=== PATIENT | female | born 1950 | race Caucasian/White ===

== ENCOUNTER 2021-05-03 17:46 | Outpatient (REF) | payer MEDICARE, SELFPAY | END 2021-05-03 17:47 | disposition home or self-care (01) | LOC: HO.LNP 17:46 | PROVIDERS: Visit Provider Hospitalist | DX: Z20.822 Contact with and (suspected) exposure to COVID-19 (principal); J01.90 Acute sinusitis, unspecified | CPT/HCPCS: U0003; U0005 ==

== ENCOUNTER 2022-04-07 14:22 | Outpatient (REF) | payer MEDICARE, SELFPAY ==
[2022-04-07 15:13] LABS: Influenza A PCR NEGATIVE (Negative); Influenza B PCR NEGATIVE (Negative); Resp Syncy Virus RNA Qual PCR NEGATIVE (Negative); SARS COV2 PCR INHOUSE NEGATIVE (Negative)
== END 2022-04-07 14:23 | disposition home or self-care (01) ==
LOC: HO.LNP 14:22
PROVIDERS: Visit Provider Physician Assistant
DX: Z20.822 Contact with and (suspected) exposure to COVID-19 (principal); B34.9 Viral infection, unspecified
CPT/HCPCS: 0241U

== ENCOUNTER 2023-01-31 14:24 | Outpatient (REF) | payer MEDICARE, SELFPAY | END 2023-01-31 14:25 | disposition home or self-care (01) | LOC: HO.LAB 14:24 | PROVIDERS: Visit Provider Physician Assistant | DX: R30.0 Dysuria (principal) | CPT/HCPCS: 87086; 87088; 87186 ==

== ENCOUNTER 2025-05-17 09:09 | Outpatient (AMB) | payer MEDICARE, MEDICAID, SELFPAY ==
--- NOTE | 2025-05-17 09:16 | AM.OFFWIN_ITS ---
Intake Vital Signs 05/17/25 09:23 Height 4 ft 10 in Weight 163 lb BMI 34.1 BP 104/70 Blood Pressure Location Lt brachial Position Sitting Pulse 94 Pulse Source Pulse Oximeter Temp 98.3 F Temp Source Oral Pulse Oximetry (%) 97 Oxygen Delivery Method Room Air Intake Visit Reasons: EP-sinus infection Intake Note: presents with chest congestion, productive cough and sinus congestion Patient Tobacco Use Status: Never used Tobacco Allergies naproxen (Naproxen) Allergy (Mild, Verified 05/17/25 09:24) STOMACH PAIN oxybutynin (From Ditropan) Allergy (Mild, Verified 05/17/25 09:24) N/V/STOMACH PAIN levofloxacin (From Levaquin) Adverse Reaction (Intermediate, Verified 05/17/25 09:26) GI distress, shakes Do you need a note to return to daycare/school/sports/work: No HPI HPI Comments History of Present Illness Details History - The patient is a 75-year-old female pr esenting with exacerbation of asthma symptoms and nasal congestion. - Asthma: Symptoms include throat tickle and chest congestion since Thursday, with sleep disturbance. - Asthma: Uses nebulizer with albuterol, reports wheezing. - Allergic Rhinitis: Nasal congestion af fects CPAP use, uses Vicks Synix. - Allergic Rhinitis: Takes montelukast, Nasacort, and allergy pill. - Sciatica: Reports ongoing pain, attend ing therapy with partial relief. Physical Exam General: Cooperative, healthy appearing, comfortable and no acute distress Orientation/consciousness: Patient oriented x3 Limitations: No limitations Head: Normal to inspection Ears: Hearing grossly normal bilaterally, external ears normal and TM's normal bilaterally Nose: Normal external nose present, Normal nares present and nasal congestion present Face and sinus: Normal facial exam and Yes sinuses nontender Mouth: Normal oral and palatal mucosa present and moist mucous membranes Throat: Yes tonsils normal, Yes uvula midline. Posterior oropharynx erythema, no exudates Eyes: Appearance normal, both eyes and all related structures Neck: Normal visual inspection, full ROM Respiratory: exp wheezes throughout. Normal respiratory effort, able to speak in complete sentences, not Actively coughing, no respiratory distress, not tachypneic, no tripod positioning and no use of accessory muscles Cardiovascular: Regular rate and rhythm. Normal S1 and S2 Skin: No rashes or lesions noted Neuro: Patient oriented x3 Extremities: Normal to inspection and Yes no clubbing, cyanosis or edema PFSH Social History Patient Tobacco Use Status: Never used Tobacco Review of Systems Const All systems reviewed & are unremarkable except as noted in HPI and below Physical Exam Vital Signs: Last Vital Signs Temp 98.3 F 05/17/25 09:23 Pulse 94 05/17/25 09:23 BP 104/70 05/17/25 09:23 Pulse Ox 97 05/17/25 09:23 Oxygen Delivery Method Room Air 05/17/25 09:23 BMI result Body Mass Index 34.1 Assessment & Plan Assessment & Plan (1) Lower respiratory infection (e.g., bronchitis, pneumonia, pneumonitis, pulmonitis): Code(s): J22 - Unspecified acute lower respiratory infection Plan: Plan - VSS, pt well appearing and PE remarkable for exp wheezing. - Prescribed prednisone 40 mg daily for five days. - Prescribed refill of albuterol nebulizer solution as well as Zpak for anti- inflammatory effects and atypical coverage. - Continue montelukast, Nasacort, and allergy medication. - Recommend decongestants like Mucinex. - Tested for flu, COVID-19, and RSV. Pt confirmed phone number and said okay to leave voice mail with test results. Patient was informed and verbally consented to the use of an ambient scribe for clinic note documentation during this visit Orders: Orders SARS-CoV2/FLU/RSV Today R09.89 - Other specified symptoms and signs involving the circulatory and respiratory systems Medications: New albuterol sulfate 1.25 mg (3 mL) inhalation Q4-6H PRN 90 mL 0RF Shortness Of Breath Or Wheezing prednisone 40 mg (2 x 20 mg) PO QAM 10 tabs 0RF azithromycin For 250 mg dose pack: take 500 mg today (day 1), then 250 mg for 4 days (days 2-5) PO 6 tabs 0RF Coding Level of Care Code New Pt Level 3 (79932) Diagnoses Lower respiratory infection (e.g., bronchitis, pneumonia, pneumonitis, pulmonitis) J22
[2025-05-17 09:23] VITALS: BP 104/70; PULSE 94; TEMP 36.8; O2SAT 97; BMI 34.1
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
== END 2025-05-17 10:20 | disposition home or self-care (01) ==
PROVIDERS: PCP Internal Medicine; Visit Provider Physician Assistant
DX: J22 Unspecified acute lower respiratory infection (principal)

== ENCOUNTER 2025-05-17 09:09 | Outpatient (REF) | payer MEDICARE, MEDICAID, SELFPAY ==
--- OUTSIDE RECORDS SUMMARY | 2025-05-17 10:18 | XMS_ITS | Encounter Summary ---
Author Organization [facility] Address [address] [place] [address] Care Team Providers Care Die Maker Bench Stamping Name Role Phone Sharad Bardales MD Primary Care Provider [phone] Wily Amezcua PA-C Primary Care Provider + [phone] Iggy Soto Primary Care Provider [phone] Reason for Visit * Reason Onset Date Comments medication problems 10/31/2020 Encounter Details Date Type Department Care Team Description 10/31/2020 Telephone Internal Medicine - [place] [address] [facility], [address] [place] [address] Sharad Bardales MD [address] [place] [address] medication problems Social History Tobacco Use Types Packs/Day Years Used Date Smoking Tobacco: Never Smokeless Tobacco: Never Alcohol Use Standard Drinks/Week Comments Yes 0 (1 standard drink = 0.6 oz pur e alcohol) 1 drink every 3 months Sex Assigned at Date Recorded Not on file Job Start Date Occupation Industry Not on file Not on file Not on file COVID-19 Exposure Response Date Recorded In the last month, have you been in contact with someone who was confirmed or suspected to have Coronavirus / COVID-19? No / Unsure 10/29/2020 9:07 AM EST documented as of this encounter Miscellaneous Notes * Telephone Encounter - Kesha William - 10/31/2020 9:34 AM EST Who is calling? Fax from [employer]. Fax #[phone] Name of the medication Albuterol Neb What is the specific problem or interaction? Pharmacy states prescription instructions exceed maximum daily dose of 4 vials and may require prior auth. Fax to be in providers folder by end of day. If the patient is having a problem with taking the med - how long has the problem been going on? N/A documented in this encounter Plan of Treatment Not on file documented as of this encounter Visit Diagnoses Not on filedocumented in this encounter Care Teams Die Maker Bench Stamping Relationship Specialty Start Date End Date Sharad Bardales MD [address] [place] [address] PCP - General 10/12/1994 01/21/21 Wily Amezcua PA-C [address] [place] [address] PCP - General Internal Medicine 01/22/21 04/07/22 Iggy Soto [address] [place] [address] PCP - General Internal Medicine 04/08/22 documented as of this encounter
[2025-05-17 14:29] LABS: Resp Syncy Virus RNA Qual PCR NEGATIVE (Negative); SARS COV2 PCR INHOUSE NEGATIVE (Negative)
== END 2025-05-17 09:10 | disposition home or self-care (01) ==
LOC: HO.LAB 09:09
PROVIDERS: Physician Assistant; PCP Internal Medicine
DX: J22 Unspecified acute lower respiratory infection (principal); R09.89 Other specified symptoms and signs involving the circulatory and respiratory systems
CPT/HCPCS: 87637; 99202

== ENCOUNTER 2025-05-23 08:58 | Outpatient (AMB) | payer MEDICARE, MEDICAID, SELFPAY ==
[2025-05-23 09:01] VITALS: BP 126/74; PULSE 68; TEMP 36.8; O2SAT 97; BMI 34.5
--- NOTE | 2025-05-23 09:01 | AM.OFFWIN_ITS ---
Intake Vital Signs 05/23/25 09:01 Height 4 ft 10 in Weight 165 lb 4 oz BMI 34.5 BP 126/74 Blood Pressure Location Lt brachial Position Sitting Pulse 68 Pulse Source Pulse Oximeter Temp 98.2 F Temp Source Oral Pulse Oximetry (%) 97 Oxygen Delivery Method Room Air Intake Visit Reasons: EP-chest & sinus congestion Patient Tobacco Use Status: Never used Tobacco Stewardesses Teacher Required: No Is last menstrual period known: No Post menopausal: Yes Patient : No Allergies naproxen (Naproxen) Allergy (Mild, Verified 05/23/25 09:07) STOMACH PAIN oxybutynin (From Ditropan) Allergy (Mild, Verified 05/23/25 09:07) N/V/STOMACH PAIN levofloxacin (From Levaquin) Adverse Reaction (Intermediate, Verified 05/23/25 09:07) GI distress, shakes Do you need a note to return to daycare/school/sports/work: No HPI HPI Comments History of Present Illness Details History - The patient is a 75-year-old female pr esenting with persistent respiratory congestion and wheezing. - Respiratory infection began two weeks ago. - Severe chest congestion and wheezing, especially at night. - Z-Cristian and prednisone course RX'd on 05/17 were ineffective. - History of asthma, uses CPAP, able to use every night still - Mucinex not helpful, Robitussin was he lpful. - Negative for flu, COVID-19, and RSV on 05/17 visit. Physical Exam General: Cooperative, healthy appearing, comfortable and no acute distress Orientation/consciousness: Patient oriented x3 Limitations: No limitations Head: Normal to inspection Ears: Hearing grossly normal bilaterally, external ears normal and TM's normal bilaterally Nose: Normal external nose present, Normal nares present and No nasal discharge present Face and sinus: Normal facial exam and Yes sinuses nontender Mouth: Normal oral and palatal mucosa present and moist mucous membranes Throat: Yes tonsils normal, Yes uvula midline. Posterior oropharynx erythema, no exudates Eyes: Appearance normal, both eyes and all related structures Neck: Normal visual inspection, full ROM Respiratory: Wheezing present, congested, clear to auscultation bilaterally. Normal respiratory effort, able to speak in complete sentences, Actively coughing, no respiratory distress, not tachypneic, no tripod positioning and no use of accessory muscles Cardiovascular: Regular rate and rhythm. Normal S1 and S2 Skin: No rashes or lesions noted Neuro: Patient oriented x3 Extremities: Normal to inspection and Yes no clubbing, cyanosis or edema PFSH Social History Patient Tobacco Use Status: Never used Tobacco Patient : No Review of Systems Const All systems reviewed & are unremarkable except as noted in HPI and below Physical Exam Vital Signs: Last Vital Signs Temp 98.2 F 05/23/25 09:01 Pulse 68 05/23/25 09:01 BP 126/74 05/23/25 09:01 Pulse Ox 97 05/23/25 09:01 Oxygen Delivery Method Room Air 05/23/25 09:01 BMI result Body Mass Index 34.5 Assessment & Plan Assessment & Plan (1) Lower respiratory infection (e.g., bronchitis, pneumonia, pneumonitis, pulmonitis): Code(s): J22 - Unspecified acute lower respiratory infection Plan: Plan - VSS, pt well appearing and PE remarkable for ins/exp wheezes and rhonchi. - Augmentin prescribed for respiratory bacterial infection. - Benzonatate prescribed for nighttime cough relief. - Six-day prednisone taper initiated. - Continue nebulizer use as needed. - No chest x-ray indicated today. Patient was informed and verbally consented to the use of an ambient scribe for clinic note documentation during this visit Medications: New benzonatate 200 mg PO BEDTIME PRN 10 caps 0RF cough amoxicillin-pot clavulanate 875-125 mg 1 tab PO Q12H 14 tabs 0RF methylprednisolone PO PER PKG DIR for 6 days 21 ea 0RF Coding Level of Care Code New Pt Level 3 (32411) Diagnoses Lower respiratory infection (e.g., bronchitis, pneumonia, pneumonitis, pulmonitis) J22
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
== END 2025-05-23 09:20 | disposition home or self-care (01) ==
PROVIDERS: PCP Internal Medicine; Visit Provider Physician Assistant
DX: J22 Unspecified acute lower respiratory infection (principal)

== ENCOUNTER → 2025-05-23 08:58 | Outpatient (BNVA) | payer MEDICARE, OTHER, SELFPAY | PROVIDERS: PCP Internal Medicine; Visit Provider Physician Assistant | DX: J22 Unspecified acute lower respiratory infection (principal) | CPT/HCPCS: 99212 ==

== ENCOUNTER 2025-09-13 16:03 | Outpatient (AMB) | payer MEDICARE, SELFPAY ==
[2025-09-13 16:10] VITALS: BP 132/80; PULSE 96; TEMP 37; O2SAT 96; BMI 33.9
--- NOTE | 2025-09-13 16:10 | MHC.OFFWIV ---
Intake Vital Signs 09/13/25 16:10 Height 4 ft 10 in Weight 73.482 kg BMI 33.9 BP 132/80 Blood Pressure Location Rt brachial Position Sitting Pulse 96 Pulse Source Pulse Oximeter Temp 98.6 F Temp Source Oral Pulse Oximetry (%) 96 Oxygen Delivery Method Room Air Intake Visit Reasons: EP Possible sinus infection Intake Note: pt presents with sinus congestion and sinus pain for 5 days Patient Tobacco Use Status: Never used Tobacco Allergies naproxen (Naproxen) Allergy (Mild, Verified 09/13/25 16:17) STOMACH PAIN oxybutynin (From Ditropan) Allergy (Mild, Verified 09/13/25 16:17) N/V/STOMACH PAIN levofloxacin (From Levaquin) Adverse Reaction (Intermediate, Verified 09/13/25 16:17) GI distress, shakes Do you need a note to return to daycare/school/sports/work: No HPI HPI Comments History of Present Illness Details Chief Complaint: ?My nose keeps switching from stuffed to runny and now I have pain in my sinuses and a puffy, burning right eye.? History of Present Illness: The patient presents with 5 days of worsening nasal/sinus symptoms. She reports alternating nasal congestion and rhinorrhea?initially on the left, then on the right. Symptoms briefly resolved but recurred and are now accompanied by pressure over the frontal and maxillary sinuses and pain ?in here? (points to face). She denies sore throat and cough but endorses right-eye puffiness with a burning sensation described as ?feels like an eyelash in there.? Eye symptoms have been present for approximately three weeks. She has not sought prior evaluation for the eye. She denies fever, chills, chest pain, or shortness of breath. 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 She uses a CPAP nightly and cleans the cushion daily and tubing weekly; she wonders if this could contribute to her symptoms. She reports, I get sinus infections all the time, and wishes to avoid progression to a chest infection. 75year-old female with acute bacterial sinusitis and associated right eye irritation. Problem #1: Acute bacterial sinusitis Assessment: 5-day history of alternating nasal congestion/rhinorrhea with frontal and maxillary sinus pressure, no systemic symptoms, frequent prior sinus infections, sick contacts at workplace. Plan: Amoxicillin-clavulanate (Augmentin) 875/125 mg, one tablet PO twice daily ? 7 days. Prednisone prescribed 40 mg po daily x 5 days to decrease sinus inflammation. Educated patient on starting antibiotics today, completing full course, and monitoring for worsening symptoms. Return or seek care sooner for fever, persistent or worsening pain, or respiratory involvement. Problem #2: Right eye irritation / possible infection Assessment: 3-week history of right eye puffiness and burning sensation; no prior evaluation; concern for possible infection. Plan: Topical ophthalmic antibiotic prescribed (specific medication not detailed in transcript). No signs of orbital cellulitis Follow-up: Prescriptions sent [facility] [address] [facility] [place]. Patient to return to care or ED for new or worsening symptoms. [facility] Social History Patient Tobacco Use Status: Never used Tobacco Review of Systems Const All systems reviewed & are unremarkable except as noted in HPI and below Physical Exam Exam Exam: Appearance: Alert.? Oriented X3.? No acute distress.? Head: Normocephalic, atraumatic, no step-offs or deformities Eyes: Pupils equal, round and reactive to light.?+ injected L conjunctiva. EOMI and pain free ENT: Discomfort w/ palpation of facial sinuses Neck: Normal inspection.? Neck supple.?No meningeal signs CVS: Normal heart rate and rhythm.? Pulses normal.? Respiratory: No respiratory distress.? Breath sounds normal.? Abdomen: Soft and nontender.? Skin: Skin warm and dry.? Normal skin color.? Normal skin turgor.? Extremities: No lower extremity edema.? No calf ttp. 5/5 strength to bilateral upper and lower extremities Neuro: Oriented X 3.? No motor deficit.? No sensory deficit. CN 2-12 intact Vital Signs: Last Vital Signs Temp 98.6 F 09/13/25 16:10 Pulse 96 09/13/25 16:10 BP 132/80 09/13/25 16:10 Pulse Ox 96 09/13/25 16:10 Oxygen Delivery Method Room Air 09/13/25 16:10 BMI result Body Mass Index 33.9 vss Assessment & Plan Assessment & Plan (1) Acute sinusitis: Code(s): J01.90 - Acute sinusitis, unspecified Qualifiers: Sinusitis location: maxillary Recurrence: not specified as recurrent Qualified Code(s): J01.00 - Acute maxillary sinusitis, unspecified Plan Take your medications as prescribed. If you were prescribed antibiotics today, it is important that you take your medication to their entirety, do not skip any doses, do not finish them early. Follow-up with your primary care provider this week. Go to the emergency department with new or worsening symptoms. In case of emergency call 911 Medications: New prednisone 40 mg (2 x 20 mg) PO DAILY 10 tabs 0RF 5 days amoxicillin-pot clavulanate 875-125 mg 1 tab PO BID 14 tabs 0RF 7 days erythromycin 0.5 inches ophthalmic (eye) BID 3.5 grams 0RF 7 days Coding Level of Care Code Est Pt Level 3 (12087) Diagnoses Acute maxillary sinusitis, recurrence not specified J01.00 Sinusitis location: maxillary Recurrence: not specified as recurrent
--- OUTSIDE RECORDS SUMMARY | 2025-09-13 18:49 | XMS_ITS | Encounter Summary ---
Author Organization [facility] Address [address] [place] [address] Care Team Providers Care Insurance Special Agent Name Role Phone Iggy Soto MD Primary Care Provider [phone] Encounter Details Date Type Department Care Team (Late st Contact Info) Description 08/21/2025 Results Follow-Up Gastroenterology - [address] [phone] Kirk Peter DO [address] [id number] Social History Tobacco Use Types Packs/Day Years Used Date Smoking Tobacco: Never Smokeless Tobacco: Never Alcohol Use Standard Drinks/Week Comments Yes 0 (1 standard drink = 0.6 oz pur e alcohol) occ Interpersonal Safety Answer Date Record ed Physical Abuse Unrecognized value 08/18/2025 Verbal Abuse Unrecognized value 08/18/2025 Comments No Sex and Gender Information Value Date Recorded Sex Assigned at Not on file Legal Sex Female 10:15 PM EST Gender Identity Not on file Sexual Orientation Not on file documented as of this encounter Progress Notes * Kirk Peter DO - 08/21/2025 8:10 AM EST Please let the patient know that her colon polyp was benign, but certainly precancerous. Given the type, size and technique used to remove the polyp in addition to the fact that she had solid stool throughout the right side of the colon, I recommend that she has a colonoscopy in 3 to 6 months. It is very important that she follows 2 days of a full liquid diet and the split bowel prep the night before the procedure. Colonoscopy 3 to 6 months. Diagnosis: Piecemeal polypectomy, poor prep. Thank you. documented in this encounter Plan of Treatment Upcoming Encounters Date Type Department Care Team (Late st Contact Info) Description 09/18/2025 8:45 AM EST Office Visit Obstetrics and Gynecology [address] [phone] Johanny Balderas CNM [address] [place] [address] 10/23/2025 8:00 AM EST Office Visit Endocrinology [address] [phone] Dorina Clifton PA [address] [place] [address] 01/03/2026 11:30 AM EDT Office Visit Adult Medicine [place] - [address] [phone] Iggy Soto MD [address] [place] [address] 02/12/2026 9:45 AM EDT Office Visit Pulmonology - [address] [place] [phone] Barb Alejandra, AMELIA [address] [place] [phone] documented as of this encounter Goals Goal Patient Goal Type Associated Problems Recent Progress Patient-Stated? Author Fell better General Improving(05/13 12:58 PM EDT) Yes Todd Oliveros M, PT Autogenerate d Goal Care Plan Autogenerated Problem No Urbano Garcia documented as of this encounter Visit Diagnoses Not on filedocumented in this encounter Additional Health Concerns Active Problems Noted Date Diagnosed Date Autogenerated Problem 07/20/2025 documented as of this encounter Care Teams Insurance Special Agent Relationship Specialty Start Date End Date Iggy Soto MD [address] [place] [address] PCP - General Internal Medicine 04/08/22 documented as of this encounter
--- OUTSIDE RECORDS SUMMARY | 2025-09-13 18:49 | XMS_ITS | Clinical Summary ---
Author Organization [facility] [address] [facility] Address [address] [place] [address] Phone Care Team Providers Care Commercial Lines Underwriter Name Role Phone Iggy Soto MD Primary Care Provider [phone] Allergies Active Allergy Reactions Criticality Noted Date Comments Clarithromycin 12/10/2017 jitters Levofloxacin Medium 11/25/2018 Other Reaction(s): OTHER Naproxen 09/03/2005 stomach pains Oxybutynin Chloride 09/03/2005 Medications acetaminophen (TYLENOL) 500 mg tablet TAKE 2 CAPLETS BY MOUTH THREE TIMES DAILY 01/24/20 23 Active ASCORBIC ACID, VITAMIN C, ORAL Take by mouth 1 (one) time each day. Active melatonin 5 mg tablet Take 2 tablets (10 mg total) by mouth at bedtime. Active albuterol 2.5 mg /3 mL (0.083 %) nebulizer solution Inhale 3 mL (2.5 mg total) by mouth every 4 (four) hours if needed for shortness of breath or wheezing. 05/21/20 21 Active cetirizine (ZyrTEC) 10 mg tablet Take 1 tablet (10 mg total) by mouth 1 (one) time each day. Active inhalational spacing device inhaler 1 Units by Does not apply route 3 times daily as needed (use with inhalers as directed). 10/02/20 18 Active CHOLECALCIFEROL, VITAMIN D3, ORAL Take 2,000 Units by mouth 1 (one) time each day. Active multivit with min-folic acid 200 mcg tablet,chewable Chew 1 (one) time each day. Active miscellaneous medical supply misc CPAP Historical (HISTORICAL CPAP) - Inhale 5-15 cm into the lungs at bedtime. regional Active triamcinolone (NASACORT) 55 mcg nasal inhalerIndications :Non-seasonal allergic rhinitis, unspecified trigger Administer 1 spray into each nostril 2 (two) times a day. 50.7 mL 3 02/07/20 25 026 Active ipratropium (ATROVENT) 21 mcg (0.03 %) nasal sprayIndications:N on-seasonal allergic rhinitis, unspecified trigger Administer 2 sprays into each nostril every 12 (twelve) hours. 300 mL 3 02/07/20 25 026 Active levothyroxine (SYNTHROID, LEVOTHROID) 150 mcg tabletIndications: Postoperative hypothyroidism Take 1 tablet (150 mcg total) by mouth 1 (one) time each day before breakfast. 90 tablet 1 03/08/20 25 Active docusate sodium (Stool Softener) 250 mg capsule Take 1 capsule (250 mg total) by mouth 1 (one) time each day. Active glucosamine/chondr barr A sod (OSTEO BI-FLEX ORAL) Take by mouth. A ctive psyllium seed, with sugar, (FIBER ORAL) Take by mouth. Activ e losartan (COZAAR) 100 mg tablet Take 1 tablet (100 mg total) by mouth 1 (one) time each day. 90 tablet 1 04/03/20 25 Active calcium carbonate 195 mg calcium (500 mg) tablet,chewableInd ications:Postopera tive hypothyroidism 2 times a day 180 tablet 3 04/21/20 25 Active montelukast (SINGULAIR) 10 mg tablet TAKE 1 TABLET BY MOUTH AT BEDTIME 90 tablet 07/20/20 25 Active levocetirizine (XYZAL) 5 mg tabletIndications: Non-seasonal allergic rhinitis, unspecified trigger TAKE 1 TABLET(5 MG) BY MOUTH 1 TIME EACH DAY IN THE EVENING 90 tablet 07/20/20 25 Active albuterol HFA (PROAIR HFA ; PROVENTIL HFA ; VENTOLIN HFA) 90 mcg/actuation inhaler Inhale 2 puffs by mouth every 4 (four) hours if needed for wheezing. 6.7 g 2 08/03/20 25 Active meloxicam (MOBIC) 7.5 mg tablet Take 1 tablet (7.5 mg total) by mouth 1 (one) time each day if needed for moderate pain. 30 each 2 08/03/20 Active Additional Information Patient not taking.Reported on 08/11/2025 diclofenac (VOLTAREN) 1 % topical gel Apply 2 g topically 2 (two) times a day if needed (pain). 100 g 3 08/03/20 Active sodium,potassium,m ag sulfates (Suprep Bowel Prep Kit) 17.5-3.13-1.6 gram recon soln bowel prep kit oral solution Take 177ML by mouth for 2 doses. SEE INSTRUCTIONS PROVIDED BY OFFICE. 1 kit 08/04/20 Active triamcinolone (KENALOG) 0.1 % cream Apply topically 3 (three) times a week. 30 g 08/21/20 25 Active triamcinolone (KENALOG) 0.1 % cream Apply topically 3 (three) times a week. 025 Discontin ued(Reord er) Active Problems Problem Noted Date Diagnosed Date H/O malignant neoplasm of thyroid 12/14/2024 Dry mouth 12/14/2024 Postoperative hypothyroidism 03/22/2024 Calculus of kidney 11/30/2023 Overview (11/30/2023): left kidney, asymptomatic CMC arthritis 11/30/2023 Class 1 obesity with body ma ss index (BMI) of 34.0 to 34.9 in adult 11/30/2023 History of colonic polyps 11/30/2023 History of basal cell carcinoma 11/30/2023 Cervical lymphadenopathy 09/21/2023 Hypoparathyroidism ([facility]/HCC V24) 09/21/2023 Prediabetes 12/15/2022 Thyroid cancer ([facility]/HCC V24, CMS/HCC V28) 2022 Urinary frequency 12/18/2021 Overview (11/30/2023): Last Assessment & Plan: Encouraged patient to increase fluids. No evidence of infection. Vaginal odor 12/18/2021 Overview (11/30/2023): Last Assessment & Plan: No evidence of infection. Arthritis of first metatarsophalangeal (MTP) rafa nt 10/17/2021 Lichen sclerosus 06/26/2020 Overview (11/30/2023): Last Assessment & Plan: Reviewed findings with patient. Well controlled. Continue yearly visit and continue MWF triamcinolone. Refilled. Neck pain 06/25/2020 Intertrigo 06/25/2020 Macromastia 06/25/2020 Constipation 05/23/2020 Sciatica, right side 05/23/2020 Lung nodule 11/10/2018 Osteopenia 07/21/2018 Overview (11/30/2023): Noted on bone density 2018 Paraesophageal hernia 12/22/2017 Overview (11/30/2023): Noted on CAT scan of chest 2018 Pneumonia 12/03/2017 RICHELLE on CPAP 08/14/2017 Overview (11/30/2023): [facility] Home Polysomnogram: Date 08/10/2017; AHI 21, Unclassified apneas 7; Obstructive apneas 82; Central apneas 10; Mixed apneas 2; hypopneas 81; average oxygen saturation 93% (lowest 84% without saturations <88% for 5% or more of study) GERD without esophagitis 04/07/2017 Allergic rhinitis due to pollen 04/07/2017 Moderate persistent asthma without complication 04/07/2017 Essential hypertension 09/02/2016 Osteoarthritis 07/06/2012 Lumbosacral spondylosis without myelopathy 06/09 Asthma 09/03/2005 Encounters Date Type Department Care Team Description 09/04/2025 Results Follow-Up Adult Medicine [address] [phone] Iggy Soto MD 09/01/2025 8:47 AM EST - 09/01/2025 11:59 PM EST Hospital Encounter Bone Density - [address] [phone] Encounter for osteoporosis screening in asymptomatic postmenopausal patient Discharge Disposition: Home or Self Care 08/21/2025 Telephone Gastroenterology - [place] [address] [facility] [address] [facility] [address] [place] [phone] Michelle Peter, DO 08/21/2025 Telephone Gastroenterology - [place] [address] [facility] [address] [facility] [address] [place] [phone] Michelle Peter, DO 08/21/2025 Results Follow-Up Gastroenterology - [address] [facility] [address] [place] [phone] Michelle Peter, DO 08/18/2025 9:15 AM EST Anesthesia Event [facility] Endoscopy [address] [place] [phone] Ladan Nichols MD 08/18/2025 7:54 AM EST - 08/18/2025 11:59 PM EST Hospital Encounter [facility] Endoscopy [address] [place] [phone] Michelle Peter DO Kapplan, Jacob A, CRNA Kriz, Petra, MD Hx of colonic polyps Discharge Disposition: Home or Self Care 08/09/2025 Telephone Adult Medicine [address] [phone] Iggy Soto MD 08/03/2025 9:00 AM EDT Office Visit Adult [address] [phone] Iggy Soto MD Essential hypertension (Primary Dx); RICHELLE on CPAP; Postoperative hypothyroidism; Hypoparathyroidism, unspecified hypoparathyroidism type (CMS/HCC V24); Osteopenia, unspecified location; Chronic left-sided low back pain with left-sided sciatica; Primary osteoarthritis of both hands 08/03/2025 Telephone General Surgery - [place] [address] [facility] [address] [place] [phone] Iggy Soto MD 07/31/2025 Telephone Pulmonology - [address] [phone] Barb Alejandra NP 07/21/2025 11:00 AM EDT Treatment Outpatient Rehabilitation - [address] [phone] Todd Oliveros, PT Chronic left-sided low back pain with left-sided sciatica (Primary Dx) 07/13/2025 11:00 AM EDT Treatment Outpatient Rehabilitation - [address] [phone] Caitie Mak, FI[employer] CURER Chronic left-sided low back pain with left-sided sciatica (Primary Dx) 07/11/2025 11:00 AM EDT Treatment Outpatient Rehabilitation - [address] [phone] Caitie Mak, FI[employer] HO[employer] CURER Chronic left-sided low back pain with left-sided sciatica (Primary Dx) 07/06/2025 11:00 AM EDT Treatment Outpatient Rehabilitation - [address] [phone] Caitie Mak, FI[employer] HO[employer] CURER Chronic left-sided low back pain with left-sided sciatica (Primary Dx) 07/04/2025 11:00 AM EDT Treatment Outpatient Rehabilitation - [address] [phone] Caitie Mak, FI[employer] HO[employer] CURER Chronic left-sided low back pain with left-sided sciatica (Primary Dx) 06/27/2025 9:30 AM EDT Treatment Outpatient Rehabilitation - [address] [phone] Todd Oliveros, PT Chronic left-sided low back pain with left-sided sciatica (Primary Dx) 06/19/2025 7:52 AM EDT - 06/19/2025 11:59 PM EDT [facility] Radiology Department - [address] [phone] Encounter for screening mammogram for breast cancer Discharge Disposition: Home or Self Care from Last 3 Months Immunizations Immunization Administration Dates Next Due H1N1 Inj Preservative Free 06/24/2018,10/10/2009 Influenza Quadravalent, 0.5m l (Fluzone High-dose) 65yo and older 07/05/2022,06/01/2020,07/14/2019 Influenza trivalent, 0.5mL ( Fluzone High-dose) 65yo and older 06/13/2022,06/15/2021,08/03/2017 Influenza trivalent, 0.5mL, preservative free (Fluarix; FluLaval; Fluzone) ages 6mo and older (Afluria) 3 years and older 07/30/2015 Influenza trivalent, with pr eservative (Fluzone; Afluria) 6mo and older 07/31/2016,09/25/2014,09/19/2013,07/06 PPD Test 11/04/2004,11/10/2003,12/02/2002 Pfizer (ages 12 & older) Biv alent, COVID-19 07/05/2022 Pfizer SARS-CoV-2 COVID-19, mRNA, LNP-S, preservative free 07/05/2022,07/25/2021,01/25/2021,01/04 Pneumococcal conjugate 13 va lent (Prevnar 13, PCV13) 2mo and older 09/14/2017 Pneumococcal polysaccharide 23 valent (Pneumovax 23) 2yo and older 11/19/2020,10/01/2015 Tdap Tetanus diptheria acell ular pertussis (Boostrix; Adacel) 7yo and older 03/15/2018 Zoster Live 03/26/2015 Zoster recombinant (Shingrix ) 19yo and older 12/30/2022,10/27/2022 Surgical History Surgery Date Site/Laterality Comments TUBAL LIGATION PROCEDURE: HISTORICAL TUBAL LIGATION BLADDER SUSPENSION 03/2006 PROCEDURE: HISTORICAL BLADDER SUSPENSION OTHER SURGICAL HISTORY Pelvic reconstruction PROCEDURE: HISTORY OTHER; COMMENT: Lai with 3 operations COLONOSCOPY 2002 PROCEDURE: HISTORICAL COLONOSCOPY; COMMENT: 2002 COLONOSCOPY 07/31/2014 PROCEDURE: HISTORICAL COLONOSCOPY; COMMENT: tics; repeat in 3 yrs COLONOSCOPY 02/03/2014 PROCEDURE: HISTORICAL COLONOSCOPY; COMMENT: adenoma and tics; repeat in 6 months COLONOSCOPY 08/28/2017 PROCEDURE: HISTORICAL COLONOSCOPY; COMMENT: very flat, very subtle 8 mm polyp cecal base, snared but not recovered; base cauterized and obliterated.; tics; repeat in 3 yrs BREAST BIOPSY PROCEDURE: BX BREAST; PERC NEEDLE CORE W/IMAG GUID; COMMENT: lt bx UPPER GASTROINTESTINAL ENDOSCOPY 02/03/2014 PROCEDURE: SD UPPER GI ENDOSCOPY PERFORMED; COMMENT: hiatus hernia UPPER GASTROINTESTINAL ENDOSCOPY 09/09/2010 PROCEDURE: SD UPPER GI ENDOSCOPY PERFORMED; COMMENT: hiatus hernia ABDOMINAL SURGERY 2017 PROCEDURE: HISTORICAL ABDOMINAL SURGERY; COMMENT: repair of paraesoph hernia dr palomino 2017 OTHER SURGICAL HISTORY 03/2020 PROCEDURE: HISTORICAL CA BASAL CELL; COMMENT: BCC 03/31 forehead (superficial) COLONOSCOPY 08/16/2020 PROCEDURE: HISTORICAL COLONOSCOPY; COMMENT: Diverticulosis, no polyps, inadequate visualization of the cecum. Repeat in 3 years. BREAST SURGERY PROCEDURE: SD UNLISTED PROCEDURE BREAST; COMMENT: lt bx of mole neg OTHER SURGICAL HISTORY 01/22/2023 PROCEDURE: HISTORY OTHER; COMMENT: total thyroidectomy Medical History Medical History Date Comments Lumbosacral spondylosis with out myelopathy 06/09/2006 DX:Lumbosacral spondylosis w ithout myelopathy Calculus of kidney DX:Calculus o f kidney; COMMENT: left kidney, asymptomatic Osteoarthritis 07/06/2012 DX:Osteoarthriti s Macular degeneration 09/19/2013 DX:Macular degeneration History of colonic polyps 09/25/2014 DX:His tory of colonic polyps Allergic rhinitis due to pollen 04/07/2017 DX:Allergic rhinitis due to pollen Asthma 09/03/2005 DX:Asthma Essential hypertension 09/02/2016 DX:Essent ial hypertension Gastroesophageal reflux dise ase without esophagitis 04/07/2017 DX:Gastroesophageal reflux d isease without esophagitis Moderate persistent asthma w ithout complication 04/07/2017 DX:Moderate persistent asthm a without complication Obstructive sleep apnea 08/14/2017 DX:Obstr uctive sleep apnea; COMMENT: [facility] Home Polysomnogram: Date 08/10/2017; AHI 21, Unclassified apneas 7; Obstructive apneas 82; Central apneas 10; Mixed apneas 2; hypopneas 81; average oxygen saturation 93% (lowest 84% without saturations <88% for 5% or more of study) Osteopenia 07/21/2018 DX:Osteopenia; C OMMENT: Noted on bone density 2017 History of basal cell carcinoma 03/21/2020 DX:History of basal cell carcinoma; COMMENT: BCC 03/31 forehead (superficial) Family History Medical History Relation Name Comments Other: facial tumor Aunt Rheum arthritis Aunt Other: some kind of intestinal problem Brother Coronary artery disease Father Heart attack Father Other: Arthritis hand Mother Breast cancer Neg Hx Cervical cancer Neg Hx Colon cancer Neg Hx Ovarian cancer Neg Hx Pancreatic cancer Neg Hx Prostate cancer Neg Hx Uterine cancer Neg Hx Relation Name Status Comments Aunt Brother htn high choles terol obesity dm Father (Age 67) mi Mother (Age 79) emphysema Social History Tobacco Use Types Packs/Day Years [...] on file Sexual Orientation Not on file Obstetrics History Para Term AB IAB SAB Ectopic Multiple Livin g Live Births 2 2 2 2 Date Outcome GA Total Labor Labor/2nd/3rd Weight Sex Type Anes PTL Nunu A1 A5 Name Clin Term Term Last Filed Vital Signs Vital Sign Reading Time Taken Comments Blood Pressure 121/78 08/18/2025 9:51 AM EST Pulse 89 08/18/2025 9:51 AM EST Temperature 36.2 C (97.1 F) 08/18/2025 8:44 AM EST Respiratory Rate 15 08/18/2025 9:51 AM EST Oxygen Saturation 97% 08/18/2025 9:51 AM EST Inhaled Oxygen Concentration - - Weight 73 kg (161 lb) 08/18/2025 8:44 AM EST Height 144.8 cm (4' 9 ) 08/18/2025 8:44 AM EST Body Mass Index 34.84 08/18/2025 8:44 AM EST Plan of Treatment Upcoming Encounters Date Type Department Care Team (Late st Contact Info) Description 09/18/2025 8:45 AM EST Office Visit Obstetrics and Gynecology [address] [phone] Johanny Balderas CNM [address] [place], [place] 10/23/2025 8:00 AM EST Office Visit Endocrinology [address] [phone] Dorina Clifton PA [address] [place], [place] 01/03/2026 11:30 AM EDT Office Visit Adult Medicine [facility] - [address] [phone] Iggy Soto MD [address] [place], [place] 02/12/2026 9:45 AM EDT Office Visit Pulmonology - [place] [address] [place] [phone] Barb Alejandra, AMELIA [address] [place] [phone] Health Maintenance Due Date Last Done Comments RSV Immunization Adult Patients (1 - Risk 50-74 years 1-dose series) 2002 Medicare Annual Wellness Visit 09/20/2022 Social Influencers of Health Screening 09/20/2022 Depression Screening 10/12/2024 COVID-19 Vaccine ( season) 2025 07/05/2022, 07/05/2022, 07/25/2021, Additional history exists Influenza Vaccine (#1) 2025 , 06/13/2022, 06/15/2021, Additional history exists Hypertension/CHF/CAD Annual BMP Blood Test 06/13/2026 06/13/2025, 03/17/2025, 01/20/2025, Additional history exists Falls Risk Assessment 08/18/2026 08/18/2025 Breast Cancer Screening 06/19/2027 06/19/20 25, 06/08/2024, 06/08/2024, Additional history exists DTaP,Tdap,and Td Vaccines (2 - Td or Tdap) 03/15/2028 03/15/2018 Cholesterol Screening (Lipid Panel) 09/26/2029 09/26/2024, 09/22/2023, 09/22/2023 Colorectal Cancer Screening: Colonoscopy 08/18/2030 08/18/2025, 08/16/2020, 08/16/2020 Osteoporosis Screening (Bone Density Screening) 09/01/2035 09/01/2025, 01/15/2021, 07/19/2018 Hepatitis C Screening Completed 07/13/2012 Pneumococcal Vaccine: 50+ Years Completed 11/19/2020, 09/14/2017, 10/01/2015 Zoster Vaccines Completed 12/30/2022, 10/12, 03/26/2015 HIB Vaccines Aged Out No longer eligi ble based on patient's age to complete this topic HPV Vaccines Aged Out No longer eligi ble based on patient's age to complete this topic Hepatitis A Vaccines Aged Out No long er eligible based on patient's age to complete this topic Hepatitis B Vaccines Aged Out No long er eligible based on patient's age to complete this topic IPV Vaccines Aged Out No longer eligi ble based on patient's age to complete this topic MMR Vaccines Aged Out No longer eligi ble based on patient's age to complete this topic Meningococcal ACWY Vaccine Aged Out N o longer eligible based on patient's age to complete this topic Meningococcal B Vaccine Aged Out No l onger eligible based on patient's age to complete this topic RSV Immunization Patients Under 20 months Aged Out No longer eligible based on patient's age to complete this topic Varicella Vaccines Aged Out No longer eligible based on patient's age to complete this topic Goals Goal Patient Goal Type Associated Problems Recent Progress Patient-Stated? Author Fell better General Improving(05/13 12:58 PM EDT) Yes Todd Oliveros, PT Autogenerate d Goal Care Plan Autogenerated Problem No Urbano Garcia Procedures Procedure Name Priority Date/Time Associated Diagnosis Comments BD BONE DENSITY DXA AXIAL SKELETON Routine 09/01/2025 9:55 AM EST Encounter for osteoporosis screening in asymptomatic postmenopausal patient COLONOSCOPY Routine 08/18/2025 9:30 AM EST Hx of colonic polyps TISSUE EXAM Routine 08/18/2025 9:23 AM EST Hx of colonic polyps EXTERNAL CLINICAL LAB 07/10/2025 MG MAMMO DIGITAL SCREENING W ROSALIO BILAT Routine 06/19/2025 8:13 AM EDT Encounter for screening mammogram for breast cancer BASIC METABOLIC PANEL Routine 06/13/2025 9:09 AM EDT Hypoparathyroidism, unspecified hypoparathyroidism type (CMS/HCC V24) LIPID PANEL WITH REFLEX TO DIRECT LDL Routine 09/26/2024 9:42 AM EST Essential hypertension Thyroid cancer (CMS/HCC V24, CMS/HCC V28) Postoperative hypothyroidism Mild intermittent asthma without complication RICHELLE on CPAP Osteopenia, unspecified location H/O basal cell carcinoma excision Cervical lymphadenopathy Hypoparathyroidism, unspecified hypoparathyroidism type (CMS/HCC V24) HEPATITIS C SCREENING Routine 07/13/2012 from Last 3 Months or Most Recently Relevant to Health Maintenance Results * BD Bone Density DXA Axial Skeleton (09/01/2025 9:55 AM EST) Anatomical Region Laterality Modality Wrist, Hip, L-spine Bone Densito metry 09/04/2025 8:49 PM EST Impressions 09/04/2025 8:50 PM EST Osteopenia. The NOF guidelines recommend that FDA approved medical therapies be considered in postmenopausal women and men age >50 years with a: i. Hip or vertebral (clinical or morphometric) fracture ii. T score of < -2.5 at the spine or hip iii. 10 year fracture probability by FRAX of >3% for hip fracture, or >20% for major osteoporotic fracture PLEASE NOTE: W.H.O. classification is based on lowest measured density at the spine, femoral neck, or total hip.This classification has prognostic significance when applied to post menopausal women and older men. 1) The World Health Organization defines low BMD as follows: T-score Normal at or > -1 Osteopenia < -1 and > -2.5 Osteoporosis at or < -2.5 without fractures Established osteoporosis < -2.5 with fractures -------- FINAL REPORT -------- Dictated By: Sergio Knight Dictated Date: 09/04/2025 20:49 ET Assigned Physician: Sergio Knight Reviewed and Electronically Signed By: Sergio Knight Signed Date: 09/04/2025 20:50 ET Workstation ID: [id number] Transcribed By: Self Edit Transcribed Date: 09/04/2025 20:49 ET Narrative 09/04/2025 8:50 PM EST Clinical history: post-menopausal osteoporosis prevention Scans of the lumbar spine and hips were performed on a [employer] fan beam bone densitometer. Bone mineral density measurements and associated T and Z scores respectively are as follows: Lumbar Spine: L1-L4 BMD: 0.872 g/cm2 T-Score: -1.6 Z-Score: 0.7 Compared with the prior study dated 01/15/2021, the BMD reading has decreased which is not statistically significant Left Proximal Femur: Neck BMD: 0.615 g/cm2 T-Score: -2.1 Z-Score: -0.1 Total BMD: 0.827 g/cm2 T-Score: -0.9 Z-Score: 0.8 Compared with the prior study the mean BMD reading in the total left hip has decreased which is statistically significant Compared with standards for the young adult, lowest measured bone density places the patient in the W.H.O. osteopenic range. FRAX 10 year probability of major osteoporotic fracture: 19% FRAX 10 year probability of hip fracture: 4.9% Population: [place] () Procedure Note Sergio Knight MD - 09/04/2025 Clinical history: post-menopausal osteoporosis prevention Scans of the lumbar spine and hips were performed on a [employer] beam bone densitometer. Bone mineral density measurements and associated T and Z scoresrespectively are as follows: Lumbar Spine: L1-L4 BMD: 0.872 g/cm2 T-Score: -1.6 Z-Score: 0.7 Compared with the prior study dated 01/15/2021, the BMD reading hasdecreased which is not statistically significant Left Proximal Femur: Neck BMD: 0.615 g/cm2 T-Score: -2.1 Z-Score: -0.1 Total BMD: 0.827 g/cm2 T-Score: -0.9 Z-Score: 0.8 Compared with the prior study the mean BMD reading in the total left hiphas decreased which is statistically significant Compared with standards for the young adult, lowest measured bone densityplaces the patient in the W.H.O. osteopenic range. FRAX 10 year probability of major osteoporotic fracture: 19% FRAX 10 year probability of hip fracture: 4.9% Population: [place] () IMPRESSION: Osteopenia. The NOF guidelines recommend that FDA approved medical therapies beconsidered in postmenopausal women and men age >50 years with a: i. Hip or vertebral (clinical or morphometric) fracture ii. T score of < -2.5 at the spine or hip iii. 10 year fracture probability by FRAX of >3% for hip fracture, or >20%for major osteoporotic fracture PLEASE NOTE: W.H.O. classification is based on lowest measured density at the spine,femoral neck, or total hip.This classification has prognostic significancewhen applied to post menopausal women and older men. 1) The World Health Organization defines low BMD as follows: T-score Normal at or > -1 Osteopenia < -1 and > -2.5 Osteoporosis at or < -2.5 withoutfractures Established osteoporosis < -2.5 with fractures -------- FINAL REPORT -------- Dictated By: Sergio Knight Dictated Date: 09/04/2025 20:49 ET Assigned Physician: Sergio Knight Reviewed and Electronically Signed By: Sergio Knight Signed Date: 09/04/2025 20:50 ET Workstation ID: [id number] Transcribed By: Self Edit Transcribed Date: 09/04/2025 20:49 ET us Iggy Soto MD IMAlfred DXA PROCEDURES Final Re sult * COLONOSCOPY Anesthesia - MAC; [facility] ENDOSCOPY (08/18/2025 9:30 AM EST) Anatomical Region Laterality Modality Endoscopy 08/18/2025 9:10 AM EST Impressions 08/18/2025 9:29 AM EST - Preparation of the colon was poor. - Hemorrhoids found on perianal exam. - One 16 mm polyp in the ascending colon, removed with a cold snare. Resected and retrieved. - Stool in the sigmoid colon, in the descending colon and at the splenic flexure. Recommendation: - Poor prep with semisolid stool which precluded appropriate colon screening examination. I attempted to clean the colon unsuccessfully. The colonoscope got clogged multiple times. - Repeat colonoscopy in 6 to 12 months. Split bowel prep and diet instructions discussed with the patient in detail. Narrative 08/18/2025 9:29 AM EST [facility] GI Patient Name: Jayde Wong Procedure Date: 08/18/2025 9:10 AM Date of : 1950 Age: 75 Gender: Female Note Status: Finalized Attending MD: Michelle Peter DO, [id number] Procedure Date No Time: 08/18/2025 Procedure: Colonoscopy Indications: High risk colon cancer surveillance: Personal history of colonic polyps Providers: Michelle Peter DO Referring MD: Iggy Soto MD Medicines: Monitored Anesthesia Care Complications: No immediate complications. Estimated blood loss: Minimal. Estimated Blood Loss: Estimated blood loss was minimal. Procedure: Pre-Anesthesia Assessment: - - Prior to the procedure, a History and Physical was performed, and patient medications and allergies were reviewed. The patient is competent. The risks and benefits of the procedure and the sedation options and risks were discussed with the patient. All questions were answered and informed consent was obtained. Patient identification and proposed procedure were verified by the physician, the nurse, the anesthesiologist, the plumber and the aviation electronics technician in the pre-procedure area in the endoscopy suite. Mental Status Examination: alert and oriented. Airway Examination: normal oropharyngeal airway and neck mobility. Respiratory Examination: clear to auscultation. CV Examination: normal. Prophylactic Antibiotics: The patient does not require prophylactic antibiotics. Prior Anticoagulants: The patient has taken no anticoagulant or antiplatelet agents. ASA Grade Assessment: II - A patient with mild systemic disease. After reviewing the risks and benefits, the patient was deemed in satisfactory condition to undergo the procedure. The anesthesia plan was to use monitored anesthesia care (MAC). Immediately prior to administration of medications, the patient was re-assessed for adequacy to receive sedatives. The heart rate, respiratory rate, oxygen saturations, blood pressure, adequacy of pulmonary ventilation, and response to care were monitored throughout the procedure. The physical status of the patient was re-assessed after the procedure. After I obtained informed consent, the scope was passed under direct vision. Throughout the procedure, the patient's blood pressure, pulse, and oxygen saturations were monitored continuously.The Colonoscope was introduced through the anus and advanced to the cecum, identified by appendiceal orifice and ileocecal valve. The colonoscopy was performed without difficulty. The patient tolerated the procedure well. The quality of the bowel preparation was poor. Findings: A few small-mouthed diverticula were found in the sigmoid colon and descending colon. There was no evidence of diverticular bleeding. Hemorrhoids were found on perianal exam. A 16 mm polyp was found in the ascending colon. The polyp was sessile. The polyp was removed with a cold snare. Resection and retrieval were complete. Verification of patient identification for the specimen was done. Estimated blood loss was minimal. Extensive amounts of semi-solid stool was found in the sigmoid colon, in the descending colon and at the splenic flexure, precluding visualization. Procedure Code(s): --- Professional --- 49827, Colonoscopy, flexible; with removal of tumor(s), polyp(s), or other lesion(s) by snare technique Diagnosis Code(s): --- Professional --- Z86.010, Personal history of colonic polyps K64.9, Unspecified hemorrhoids D12.2, Benign neoplasm of ascending colon CPT copyright 2020 [employer]. All rights reserved. The codes documented in this report are preliminary and upon drill operator review may be revised to meet current compliance requirements. MICHELLE Peter DO 08/18/2025 9:29:22 AM This report has been signed electronically.Michelle Peter DO Number of Addenda: 0 Note Initiated On: 08/18/2025 9:10 AM Scope Withdrawal Time: 0 hours 7 minutes 15 seconds Scope In: 9:18:56 AM Scope Out: 9:28:13 AM Endoscopy Department at [facility] - [address] [place] [id number] Procedure Note Michelle Peter DO - 08/18/2025 [facility] GI Patient Name: Jayde Wong Procedure Date: 08/18/2025 9:10 AM Date of : 1950 Age: 75 Gender: Female Note Status: Finalized Attending MD: Michelle Peter DO, [id number] Procedure Date No Time: 08/18/2025 Procedure: Colonoscopy Indications: High risk colon cancer surveillance: Personalhistory of colonic polyps Providers: Michelle Peter DO Referring MD: Iggy Soto MD Medicines: Monitored Anesthesia Care Complications: No immediate complications. Estimated blood loss: Minimal. Estimated Blood Loss: Estimated blood loss was minimal. Procedure: Pre-Anesthesia Assessment: - - Prior to the procedure, a History and Physicalwas performed, and patient medications and allergieswere reviewed. The patient is competent. The risks and benefits of the procedure and the sedation optionsand risks were discussed with the patient. Allquestions were answered and informed consent was obtained. Patient identification and proposed procedure were verified by the physician, the nurse, the anesthesiologist, the plumber and thetechnician in the pre-procedure area in the endoscopy suite. Mental Status Examination: alert and oriented.Airway Examination: normal oropharyngeal airway and neck mobility. Respiratory Examination: clear to auscultation. CV Examination: normal. Prophylactic Antibiotics: The patient does not requireprophylactic antibiotics. Prior Anticoagulants: The patient has taken no anticoagulant or antiplatelet agents. ASA Grade Assessment: II - A patient with mild systemic disease. After reviewing the risks and benefits,the patient was deemed in satisfactory condition to undergo the procedure. The anesthesia plan was touse monitored anesthesia care (MAC). Immediately priorto administration of medications, the patient was re-assessed for adequacy to receive sedatives. The heart rate, respiratory rate, oxygen saturations, blood pressure, adequacy of pulmonary ventilation,and response to care were monitored throughout the procedure. The physical status of the patient was re-assessed after the procedure. After I obtained informed consent, the scope was passed under direct vision. Throughout theprocedure, the patient's blood pressure, pulse, and oxygen saturations were monitored continuously.The Colonoscope was introduced through the anus and advanced to the cecum, identified by appendiceal orifice and ileocecal valve. The colonoscopy was performed without difficulty. The patient tolerated the procedure well. The quality of the bowel preparation was poor. Findings: A few small-mouthed diverticula were found in the sigmoid colon and descending colon. There was no evidence of diverticular bleeding. Hemorrhoids were found on perianal exam. A 16 mm polyp was found in the ascending colon. The polyp was sessile. The polyp was removed with acold snare. Resection and retrieval were complete. Verification of patient identification for the specimen was done. Estimated blood loss wasminimal. Extensive amounts of semi-solid stool was found inthe sigmoid colon, in the descending colon and at the splenic flexure, precluding visualization. Procedure Code(s): --- Professional --- 52852, Colonoscopy, flexible; with removal of tumor(s), polyp(s), or other lesion(s) by snare technique Diagnosis Code(s): --- Professional --- Z86.010, Personal history of colonic polyps K64.9, Unspecified hemorrhoids D12.2, Benign neoplasm of ascending colon CPT copyright 2020 [employer]. All rights reserved. The codes documented in this report are preliminary and upon drill operator reviewmay be revised to meet current compliance requirements. MICHELLE Peter DO 08/18/2025 9:29:22 AM This report has been signed electronically.Michelle Peter DO Number of Addenda: 0 Note Initiated On: 08/18/2025 9:10 AM Scope Withdrawal Time: 0 hours 7 minutes 15 seconds Scope In: 9:18:56 AM Scope Out: 9:28:13 AM Endoscopy Department at [facility] - [address] [place] [phone] IMPRESSION: - Preparation of the colon was poor. - Hemorrhoids found on perianal exam. - One 16 mm polyp in the ascending colon, removedwith a cold snare. Resected and retrieved. - Stool in the sigmoid colon, in the descendingcolon and at the splenic flexure. Recommendation: - Poor prep with semisolid stool which precluded appropriate colon screening examination. Iattempted to clean the colon unsuccessfully. The colonoscopegot clogged multiple times. - Repeat colonoscopy in 6 to 12 months. Split bowel prep and diet instructions discussed with thepatient in detail. us Michelle Peter DO GI~PROCEDURE ORDERABLES Final Re sult * Tissue exam (08/18/2025 9:23 AM EST) Final Diagnosis A. Large Intestine, Right/Ascending Colon, colon polyp: - Sessile serrated lesion (polyp). 08/21/2025 8:03 AM EST [facility] at 0803 EST Gross Description A. Large Intestine, Right/Ascending Colon, colon polyp: Labeled ascend colon emelina . Received in formalin, are multiple irregular soft to rubbery, pathak-pink, polypoid tissue fragments, approximately ranging from 0.2 cm to 0.4 cm in greatest diameters, aggregating to 1.0 x 0.5 x 0.2 cm, and admixed with fecal/food debris. The specimen is wrapped in paper and submitted in toto in one cassette, multiple pieces, multiple levels. Please note: Small tissue fragments may not survive processing. hs/DG 08/21/2025 8:03 AM [facility] Disclaimer Unless otherwise specified, all tissue is 10% NB formalin fixed and paraffin embedded. 08/21/2025 8:03 AM [facility] Tissue Ascending colon structure / Unknown 08/18/2025 9:23 AM EST 08/18/2025 10:41 AM EST us Michelle Peter DO LAB PATHOLOGY ORDERABLES Final R esult [facility]) [facility] [address] [place] [address], * External clinical lab (07/10/2025) Provider [facility] LAB BLOOD ORDERABLES Fin al Result * MG Mammo Digital Screening w Rosalio bilat (06/19/2025 8:13 AM EDT) Anatomical Region Laterality Modality Breast Bilateral Mammography 06/20/2025 10:0 1 AM EDT Impressions 06/20/2025 10:05 AM EDT Benign. BI-RADS CATEGORY: 1 - NEGATIVE RECOMMENDATION: Screening bilateral mammogram is recommended in 1 year. Mammo Location: [facility], [address] [place] [address], [address], . -------- FINAL REPORT -------- Dictated By: Kristal Fisher Dictated Date: 06/20/2025 10:01 ET Assigned Physician: Kristal Fisher Reviewed and Electronically Signed By: Kristal Fisher Signed Date: 06/20/2025 10:05 ET Workstation ID: [id number] Transcribed By: Self Edit Transcribed Date: 06/20/2025 10:01 ET Narrative 06/20/2025 10:05 AM EDT CLINICAL: 75 years old, Female, routine annual exam. COMPARISON: Mammograms dating back to 05/20/2021 with most recent of 06/08/2024. TECHNIQUE: Bilateral MLO and CC views were obtained digitally with 3-D mammogram (digital breast tomosynthesis). Computer-aided detection was utilized in evaluation of this exam (CAD). FINDINGS: There is no evidence of suspicious mass or architectural distortion. No worrisome calcifications are evident. There has been no significant change from prior exam(s). BREAST DENSITY: B - There are scattered areas of fibroglandular density. Procedure Note Kristal Fisher MD - 06/20/2025 CLINICAL: 75 years old, Female, routine annual exam. COMPARISON: Mammograms dating back to 05/20/2021 with most recent of06/08/2024. TECHNIQUE: Bilateral MLO and CC views were obtained digitally with 3-Dmammogram (digital breast tomosynthesis). Computer-aided detection wasutilized in evaluation of this exam (CAD). FINDINGS: There is no evidence of suspicious mass or architectural distortion. Noworrisome calcifications are evident. There has been no significantchange from prior exam(s). BREAST DENSITY: B - There are scattered areas of fibroglandular density. IMPRESSION: Benign. BI-RADS CATEGORY: 1 - NEGATIVE RECOMMENDATION: Screening bilateral mammogram is recommended in 1 year. Mammo Location: [facility], [address] [place] [address], [address], . -------- FINAL REPORT -------- Dictated By: Kristal Fisher Dictated Date: 06/20/2025 10:01 ET Assigned Physician: Kristal Fisher Reviewed and Electronically Signed By: Kristal Fisher Signed Date: 06/20/2025 10:05 ET Workstation ID: [id number] Transcribed By: Self Edit Transcribed Date: 06/20/2025 10:01 ET us Iggy Soto MD IMG BI PROCEDURES Final Res ult * Basic metabolic panel (06/13/2025 9:09 AM EDT) Sodium 137 133 - 145 mmol/L LAB CHEMISTRY METHOD 06/13/2025 7:24 PM [facility] Potassium 5.0 3.5 - 5.5 mmol/L LAB CHEMISTRY METHOD 06/13/2025 7:24 PM [facility] Chloride 104 96 - 110 mmol/L LAB CHEMISTRY METHOD 06/13/2025 7:24 PM [facility] CO2 28 21 - 32 mmol/L LAB CHEMISTRY METHOD 06/13/2025 7:24 PM [facility] Anion Gap 5 3 - 11 LAB CHEMISTRY METHOD 06/13/2025 7:24 PM [facility] Glucose 94 70 - 100 mg/dL LAB CHEMISTRY METHOD 06/13/2025 7:24 PM [facility] BUN 14 5 - 25 mg/dL LAB CHEMISTRY METHOD 06/13/2025 7:24 PM [facility] Creatinine 0.65 0.50 - 1.10 mg/dL LAB CHEMISTRY METHOD 06/13/2025 7:24 PM [facility] eGFR 93 >=60 mL/min/1. 73m2 LAB CHEMISTRY METHOD 06/13/2025 7:24 PM EDT [facility] Comment:Calculation based on the Chronic Kidney Disease Epidemiology Collaboration (CKD-EPI) equation refit without adjustment for race. BUN/Creatinine Ratio 21.5 LAB CHEMISTRY METHOD 06/13/2025 7:24 PM EDT [facility] Calcium 9.2 8.5 - 10.5 mg/dL LAB CHEMISTRY METHOD 06/13/2025 7:24 PM EDT [facility] Blood Venous blood specimen / Unknown Venipuncture / Unknown 06/13/2025 9:09 AM EDT 06/13/2025 9:09 AM EDT us Iggy Soto MD LAB BLOOD ORDERABLES Final Result [facility] [address] [place] [address], * (ABNORMAL) Lipid panel with reflex to direct LDL (09/26/2024 9:42 AM EST) Cholesterol 208(H) 0 - 200 mg/dL LAB CHEMISTRY METHOD 09/26/2024 4:35 PM [facility] Triglycerides 111 0 - 150 mg/dL LAB CHEMISTRY METHOD 09/26/2024 4:35 PM EST [facility] HDL 67 >=40 mg/dL LAB CHEMISTRY METHOD 09/26/2024 4:35 PM [facility] LDL Calculated 119(H) 0 - 100 mg/dL LAB CHEMISTRY METHOD 09/26/2024 4:35 PM [facility] VLDL Cholesterol [place] 22.2 mg/dL LAB CHEMISTRY METHOD 09/26/2024 4:35 PM [facility] Non HDL Chol. (LDL+VLDL) 141 <145 mg/dL LAB CHEMISTRY METHOD 09/26/2024 4:35 PM [facility] Chol/HDL Ratio 3.1 0.0 - 4.4 LAB CHEMISTRY METHOD 09/26/2024 4:35 PM EST [facility] Blood Venous blood specimen / Unknown Venipuncture / Unknown 09/26/2024 9:42 AM EST 09/26/2024 9:42 AM EST Iggy Soto MD LAB BLOOD ORDERABLES Final Result [facility] [address] [place] [address], * Hepatitis C Screening (07/13/2012) [facility] Hepatitis C Screening abstracted Historical Provider HEALTH MAINTENANCE Final Result from Last 3 Months or Most Recently Relevant to Health Maintenance Additional Health Concerns Active Problems Noted Date Diagnosed Date Autogenerated Problem 07/20/2025 Insurance MEDICAID - [place] [employer] MEDICARE Advance Directives Documents on File Type Date Recorded Patient Hand Cigar Making Supervisor Expl anation Health Care Decision (hx) 12/21/2009 AD BARDALSE DIRECTIVE Health Care Decision (hx) 12/21/2009 AD BARDALES DIRECTIVE Health Care Decision (hx) 12/21/2009 AD BARDALES DIRECTIVE Health Care Decision (hx) 12/21/2009 AD BARDALES DIRECTIVE Health Care Decision (hx) 12/21/2009 AD BARDALES DIRECTIVE Health Care Decision (hx) 12/21/2009 AD BARDALES DIRECTIVE Health Care Decision (hx) 12/21/2009 AD BARDALES DIRECTIVE Care Teams Commercial Lines Underwriter Relationship Specialty Start Date End Date Iggy Soto MD [address] [place] [address] PCP - General Internal Medicine 04/08/22
--- OUTSIDE RECORDS SUMMARY | 2025-09-13 18:49 | XMS_ITS ---
Author Organization [facility] [address] [facility] Address [address] [facility] [place] [address] Phone Care Team Providers Care Iron Carrier Name Role Phone Iggy Soto MD Primary Care Provider [phone] Active Problems Problem Noted Date Diagnosed Date H/O malignant neoplasm of thyroid 12/14/2024 Dry mouth 12/14/2024 Postoperative hypothyroidism 03/22/2024 Calculus of kidney 11/30/2023 Overview (11/30/2023): left kidney, asymptomatic [facility] arthritis 11/30/2023 Class 1 obesity with body ma ss index (BMI) of 34.0 to 34.9 in adult 11/30/2023 History of colonic polyps 11/30/2023 History of basal cell carcinoma 11/30/2023 Cervical lymphadenopathy 09/21/2023 Hypoparathyroidism ([facility] V24) 09/21/2023 Prediabetes 12/15/2022 Thyroid cancer ([facility] V24, [facility] V28) 2022 Urinary frequency 12/18/2021 Overview (11/30/2023): [...] 12/03/2017 RICHELLE on CPAP 08/14/2017 Overview (11/30/2023): [facility] Home Polysomnogram: Date 08/10/2017; AHI 21, [...] Lumbosacral spondylosis without myelopathy 06/09 Asthma 09/03/2005 Current Treatment and Therapy Plans No current plan information found. Past Treatment and Therapy Plans No past plan information found. Lifetime Dose Tracking * Chemical Lifetime Dose Automatic Entry Manual Entr y CTDIvol 23.84 mGy 23.84 mGy 0 mGy
--- OUTSIDE RECORDS SUMMARY | 2025-09-13 18:49 | XMS_ITS | Encounter Summary ---
Author Organization [facility] Address [address] [place] [address] Care Team Providers Care Blasting Gang Miner Name Role Phone Iggy Soto MD Primary Care Provider [phone] Encounter Details Date Type Department Care Team (Late Contact Info) Description 09/04/2025 Results Follow-Up Adult Medicine [address] [phone] Iggy Soot MD [address] [place] [address] Social History Tobacco Use Types Packs/Day Years [...] on file documented as of this encounter Plan of Treatment Upcoming Encounters Date Type Department Care Team (Late Contact Info) Description 09/18/2025 8:45 AM EST Office Visit Obstetrics and Gynecology - [address] [phone] Johanny Balderas CNM [address] [place] [address] 10/23/2025 8:00 AM EST Office Visit Endocrinology - [address] [phone] Dorina Clifton PA [address] [place], [place] 01/03/2026 11:30 AM EDT Office Visit Adult Medicine [address] [phone] Iggy Soto MD [address] [place] [address] 02/12/2026 9:45 AM EDT Office Visit Pulmonology - [place] [address] [facility] [address] [place] [phone] Barb Alejandra NP [address] [place] [phone] documented as of this encounter Goals Goal [...] documented as of this encounter Care Teams Blasting Gang Miner Relationship Specialty Start Date End Date Iggy Soto MD [address] [place], [place] PCP - General Internal Medicine 04/08/22 documented as of this encounter
== END 2025-09-13 16:41 | disposition home or self-care (01) ==
PROVIDERS: PCP Internal Medicine; Visit Provider Physician Assistant
DX: J01.00 Acute maxillary sinusitis, unspecified (principal)

== ENCOUNTER → 2025-09-13 16:03 | Outpatient (BNVA) | payer MEDICARE, OTHER, SELFPAY | PROVIDERS: PCP Internal Medicine; Visit Provider Physician Assistant | DX: J01.00 Acute maxillary sinusitis, unspecified (principal) | CPT/HCPCS: 99212 ==